=== PATIENT | female | born 1985 | race Caucasian/White ===

== ENCOUNTER 2019-09-27 09:25 | Outpatient (CLI) | payer OTHER ==
--- NOTE | 2019-09-27 10:18 | MMO ---
Bilateral MAMMO Bilat Diag [facility]. CLINICAL HISTORY: Patient is 34 years old and is seen for diagnostic exam. The patient has no family history of breast cancer. The patient has no personal history of cancer. VIEWS: The views performed were: bilateral craniocaudal with tomosynthesis; bilateral mediolateral oblique with tomosynthesis; and bilateral mediolateral with tomosynthesis. FILMS COMPARED: The present examination has been compared to a prior imaging study performed at [facility] on 09/27/2019. This study has been interpreted with the assistance of computer-aided detection. MAMMOGRAM FINDINGS: The breasts are heterogeneously dense, which could obscure a lesion on mammography. There is an equal density, oval mass measuring 17 millimeters with circumscribed margins seen in the anterior outer region of the left breast. This corresponds to the palpable area. The mass was shown to be a cyst on ultrasound. There are no suspicious masses, suspicious calcifications, or areas of architectural distortion. IMPRESSION: THERE IS NO MAMMOGRAPHIC EVIDENCE OF MALIGNANCY. A ROUTINE FOLLOW-UP MAMMOGRAM AT AGE 38 IS RECOMMENDED. THE RESULTS OF THIS EXAM WERE SENT TO THE PATIENT. ACR BI-RADS Category 2 - Benign finding MAMMOGRAPHY NOTE: 1. A negative mammogram report should not delay a biopsy if a dominant of clinically suspicious mass is present. 2. Approximately 10% to 15% of breast cancers are not detected by mammography. 3. Adenosis and dense breasts may obscure an underlying neoplasm. Reported by: JILLIAN BROWN MD Electonically Signed: [id number]
--- NOTE | 2019-09-27 10:56 | ULT ---
LIMITED LEFT BREAST ULTRASOUND: DATE: 09/27/2019. PROVIDED CLINICAL HISTORY: Left breast palpable abnormality. FINDINGS: Limited sonographic interrogation was performed of the left breast in the region of palpable concern. There is an oval, anechoic, wider than tall mass with enhanced through transmission measuring about 1.8 cm in the region of palpable concern. This is compatible with a simple cyst. No concerning son ographic features are evident. IMPRESSION: BIRADS category 2 - benign findings. Palpable finding corresponds to a simple cyst. POS: OFF
== END 2019-09-27 09:26 | disposition home or self-care (01) ==
LOC: BICMAMMO 09:25
PROVIDERS: ATTEND Obstetrics & Gynecology
DX: N60.02 Solitary cyst of left breast (principal)
CPT/HCPCS: 77066; G0279

== ENCOUNTER 2020-03-26 10:17 | Outpatient (CLI) | payer OTHER ==
--- NOTE | 2020-03-26 13:10 | MRI ---
MRI LEFT KNEE: DATE: 03/26/2020. PROVIDED CLINICAL HISTORY: Left knee pain status post injury. FINDINGS: Intact proximal fibers of the anterior cruciate ligament are not identified, compatible with proximal disruption. The posterior cruciate ligament, medial collateral ligament, lateral collateral ligamen tous complex, and extensor mechanism appear intact. Medial and lateral menisci demonstrate no evidence for tear. Probable meniscocapsular separation inv olving the posterior horn of the medial meniscus. Osteochondral impaction injury lateral femoral condyle. Contusion posteromedial and posterolateral t ibial plateaus with associated trabecular microfracture involving the posterior aspects of the medial tibial plateau. Articular cartilage appears otherwise normal. There is a moderate-large knee joint effusion. Small Jones's cyst. Myofascial tearing is noted invo lving the proximal soleus muscle. Regional muscular signal appears otherwise unremarkable. IMPRESSION: 1. Proximal anterior cruciate ligament disruption. 2. Medial meniscocapsular separation. 3. Osteochondral impaction injury lateral femoral condyle and contusions involving proximal tibia. Associated trabecular microfracture involving the posteromedial tibial plateau suspected. 4. Moderate-large knee joint effusion. POS: C
== END 2020-03-26 10:18 | disposition home or self-care (01) ==
LOC: TBSIIMAG 10:17
PROVIDERS: ATTEND Orthopaedic Surgery
DX: M23.92 Unspecified internal derangement of left knee (principal); S83.115A Anterior dislocation of proximal end of tibia, left knee, initial encounter; S83.242A Other tear of medial meniscus, current injury, left knee, initial encounter; M25.462 Effusion, left knee; S70.12XA Contusion of left thigh, initial encounter

== ENCOUNTER 2020-05-06 05:38 | Outpatient (CLI) | payer OTHER ==
[2020-05-06 12:16] LABS: BHCG - Serum Negative (NEGATIVE); Pregs Control Background? CLEAR/WHITE (CLR/WHITE); Pregs Control Bar Appear? YES (CONTROL BAR)
[2020-05-06 12:22] LABS: #Eosinphils 0.3 thou/uL (0.0-0.7); #Lymphocytes 2.1 thou/uL (1.20-3.40); #Monocytes 0.6 thou/uL (0.11-0.59); #Neutrophils 4.1 thou/uL (1.40-6.50); %Basophils 0.6 % (0.0-1.0); %Eosinophils 3.5 % (0.0-10.0); %Lymphocytes 29.5 % (21.0-51.0); %Monocytes 8.7 % (0.0-10.0); %Neutrophils 57.7 % (42.0-75.0); Hemoglobin 13.9 g/dL (12.0-16.0); Mean Corpuscular HGB CONC 32.6 g/dL (32.0-36.0); Mean Corpuscular Hemoglobin 30.4 pg (27.0-31.0); Mean Corpuscular Volume 93.3 fL (78.0-98.0); Mean Platelet Volume 8.5 fL (7.4-10.4); Platelet Count 275 thou/uL (130-400); RBC Distribution Width 11.9 % (11.5-14.5); Red Blood Cell (RBC) Count 4.58 mill/uL (4.20-5.40); White Blood Cell (WBC) Count 7.2 thou/uL (4.8-10.8)
[2020-05-07 13:09] LABS: SARS-CoV-2 MS2 Positive; SARS-CoV-2 N Gene Negative; SARS-CoV-2 S Gene Negative; SARS-CoV-2 orf1ab Negative
== END 2020-05-06 05:39 | disposition home or self-care (01) ==
LOC: LABBT 05:38
PROVIDERS: ATTEND Orthopaedic Surgery
DX: Z01.812 Encounter for preprocedural laboratory examination (principal); Z11.59 Encounter for screening for other viral diseases; S83.512A Sprain of anterior cruciate ligament of left knee, initial encounter
CPT/HCPCS: 84703; 85025; 87635; U0003

== ENCOUNTER 2020-05-08 05:53 | Observation (INO) | payer OTHER ==
[2020-05-03 10:31] VITALS: BMI 29.9
[2020-05-08] MEDS ORDERED: Midazolam HCl 2 mg/2 ml Vial ONE ×2 (06:31→06:42)
[2020-05-08] MEDS ORDERED: Fentanyl 100 MCG/2 ML VIAL ONE ×4 (06:31→10:42)
[2020-05-08] MEDS ORDERED: HYDROcodone/Acetaminophen 10/325 mg Tablet PO PRN ×2 (07:05)
[2020-05-08] MEDS ORDERED: Ondansetron PF 4 MG/2 ML Vial IVP PRN (07:05)
[2020-05-08] MEDS ORDERED: Zolpidem Tartrate 5 MG TAB PO PRN (07:05)
[2020-05-08] MEDS ORDERED: Ropivacaine 0.2% 550 ML 550 ML NERVE BLCK SCH (07:05)
[2020-05-08] MEDS ORDERED: Promethazine HCl 25 MG/ML VIAL IM PRN ×2 (07:05→09:23)
[2020-05-08] MEDS ORDERED: traMADol HCl 50 MG TAB PO PRN ×2 (07:05)
[2020-05-08] MEDS ORDERED: Fentanyl 100 MCG/2 ML VIAL SLOW IVP PRN (07:06)
[2020-05-08] MEDS ORDERED: Vancomycin 1.5 GRAM/300 ML BAG ONE (08:00)
[2020-05-08] MEDS ORDERED: diphenhydrAMINE 50 MG CAP PO PRN (08:52)
[2020-05-08] MEDS ORDERED: Milk Of Magnesia 30 ML UDCUP PO PRN (08:52)
[2020-05-08] MEDS ORDERED: Morphine 4 MG/ML VIAL SLOW IVP PRN (08:52)
[2020-05-08] MEDS ORDERED: Morphine 2 MG/ML SYRINGE SLOW IVP PRN (08:52)
[2020-05-08] MEDS ORDERED: HYDROcodone/Acetaminophen 7.5/325 mg Tablet PO PRN ×2 (08:52)
[2020-05-08] MEDS ORDERED: Methocarbamol 500 MG TAB PO PRN (08:52)
[2020-05-08] MEDS ORDERED: Bisacodyl 10 MG SUPP PR PRN (08:52)
[2020-05-08] MEDS ORDERED: Acetaminophen 500 MG TAB PO PRN (08:52)
[2020-05-08] MEDS ORDERED: Sodium Chloride 0.9% 1,000 ML IV SCH (09:00)
[2020-05-08] MEDS ORDERED: Ondansetron HCl/PF 4 MG/2 ML Vial IVP PRN (09:23)
[2020-05-08] MEDS ORDERED: Promethazine HCl 25 MG/ML VIAL SLOW IVP PRN (09:23)
[2020-05-08] MEDS ORDERED: Ketorolac Tromethamine 30 MG/ML VIAL IVP PRN (09:23)
[2020-05-08] MEDS ORDERED: Meperidine HCl/PF 25 MG/ML VIAL SLOW IVP PRN (09:23)
--- NOTE | 2020-05-08 10:07 | OP ---
DATE OF PROCEDURE: 05/08/2020 PREOPERATIVE DIAGNOSIS: Left knee anterior cruciate ligament tear. POSTOPERATIVE DIAGNOSIS: Left knee anterior cruciate ligament tear. PROCEDURES PERFORMED: 1. Left knee exam under anesthesia. 2. Left knee arthroscopy with arthroscopically-assisted anterior cruciate ligament reconstruction using an allograft, Achilles tendon. PHILANTHROPY OFFICER: Ajay Red PA-C ESTIMATED BLOOD LOSS: Minimal. COMPLICATIONS: None. She had a preoperative block. She also had general anesthetic. IMPLANTS: 7 x 25 metal interference screw on the femur, a 9 x 30 Bio[employer]posite screw in the tibial tunnel, and a bicortical screw with a soft tissue washer as backup on the tibia. DISPOSITION: She did go to recovery room in stable condition. INDICATIONS FOR PROCEDURE: This is a 35-year-old female, who tore her ACL and is exhibiting daily instability, at this time wished to have her ACL reconstructed with an allograft tendon. DESCRIPTION OF PROCEDURE: After all appropriate consent forms were explained and signed, she was taken to operative room and at this time was given general anesthetic. Once the level of anesthesia was appropriate, an exam under anesthesia confirmed a positive Isma's and a positive pivot shift. A tourniquet was placed on left thigh. Leg was placed in arthroscopic leg nix. The limb was then prepped and draped in standard surgical fashion. The limb was exsanguinated and tourniquet was taken to 300 mmHg. Inferolateral portal was established. Scope was placed into the knee joint. Needle localization technique was then used to make our medial working portal. Diagnostic arthroscopy was commenced in the notch. ACL was found to be torn. PCL was intact. Remnant of the ACL was removed with a shaver. Medial compartment was evaluated. Femur, tibia, and medial meniscus were probed thoroughly and found to be intact. On the lateral side, the same findings were noted as this was found to be completely intact. Gutters were clean. Patellofemoral joint was also clean. At this time, notchplasty was performed. We then flexed the knee, and through the medial portal, an [id number] guide was used to place a pin up and out the anterolateral thigh. A 10-mm reamer was used to ream the tunnel depth to nearly 30 mm. All loose bony and cartilaginous debris removed from the knee joint. Tibial guide set at 55 degrees was then set into the knee joint and a pin was placed into the anatomic insertion of the ACL on the tibia. 10-mm reamer was again used to ream our tunnel. Again, all loose bony and cartilaginous debris were removed from the knee joint. At this time, we dilated both the femoral and tibial tunnel to compact the bone in the tunnels. Red rasp and bur were then used to smooth off any rough edges of our tunnels. At this time, we then flexed the knee up and placed the pin up and out the anterolateral thigh one more time. This was used to pull the passing suture up into the knee joint, which was then pulled down the tibial tunnel. This was used for graft into place. 7 x 25 metal interference screw was then used to fix our femoral side. With the knee in full extension and posterior drawer being applied, a 9 x 30 BioComposite screw was then placed up the tibial tunnel. Camera was inserted into the knee to make sure that the graft had full range of motion with no impingement in full flexion or extension and no visible part of the screw was seen. Once this was done, we drilled, tapped and placed a bicortical screw with a soft tissue washer to back up our tibial fixation. At this time, we then cut the extra tissue off, closed our incisions with deep Vicryl followed by nylon sutures. Bulky sterile dressing was applied and tourniquet was let down. Toes pinked up nicely. The patient was awakened. She was taken to recovery room in stable condition. All counts were correct at the end of the case. She did receive preoperative IV antibiotics. Job ID: [id number]
[2020-05-08] MEDS ORDERED: Ketorolac Tromethamine 30 MG/ML VIAL ONE (11:28)
[2020-05-08] MEDS ORDERED: Dexamethasone 20 MG/5 ML VIAL ONE (11:33)
[2020-05-08] MEDS ORDERED: PROPOFOL 200 MG/20 ML VIAL ONE (11:33)
[2020-05-08] MEDS ORDERED: Lidocaine 1% PF 5 ML VIAL ONE (11:33)
[2020-05-08] MEDS ORDERED: Bupivacaine HCl 0.5%/Epinephrine 1:200,000/PF 30 ml Vial ONE (11:33)
[2020-05-08] MEDS ORDERED: Ondansetron PF 4 MG/2 ML Vial ONE (11:33)
[2020-05-08] MEDS ORDERED: CEFAZOLIN 2 GM in Premix Bag 1 BAG IVPB SCH (14:00)
[2020-05-08] MEDS: Ketorolac Tromethamine 30 MG/ML VIAL IVP SCH ×3 (14:05→23:21)
[2020-05-08] MEDS: Famotidine 40 MG/5 ML Oral Suspension PO SCH ×2 (14:05→20:33)
[2020-05-08] MEDS: CEFAZOLIN 2 GM in Premix Bag 1 BAG IVPB SCH ×2 (17:34→23:22)
[2020-05-08] MEDS: Vancomycin 1 GM in Premix Bag 1 BAG IVPB SCH (20:27)
[2020-05-09] MEDS: Ketorolac Tromethamine 30 MG/ML VIAL IVP SCH (05:38)
[2020-05-09 08:15] VITALS: BP 114/66; TEMP 98.3
[2020-05-09] MEDS ORDERED: Fentanyl 250 MCG/5 ML VIAL ONE (08:32)
[2020-05-09] MEDS: Famotidine 40 MG/5 ML Oral Suspension PO SCH (08:50)
[2020-05-09] MEDS: Vancomycin 1 GM in Premix Bag 1 BAG IVPB SCH (08:51)
[2020-05-09] MEDS ORDERED: Ondansetron PF 4 MG/2 ML Vial ONE (10:08)
== END 2020-05-09 12:05 | disposition home or self-care (01) ==
LOC: SDC 05:53 → SURG A 13:15
PROVIDERS: ADMIT Orthopaedic Surgery; ATTEND Orthopaedic Surgery
PROC: 0MRP47Z Replacement of Left Knee Bursa and Ligament with Autologous Tissue Substitute, Percutaneous Endoscopic Approach (ICD-10-PCS; principal; 2020-05-08)
PROC: 3E0T3BZ Introduction of Anesthetic Agent into Peripheral Nerves and Plexi, Percutaneous Approach (ICD-10-PCS; 2020-05-08)
DX: S83.512A Sprain of anterior cruciate ligament of left knee, initial encounter (principal); G89.18 Other acute postprocedural pain; X58.XXXA Exposure to other specified factors, initial encounter
CPT/HCPCS: 96374; 96375; 96376; A4306; C1713; G0378; J0670; J0690; J1100; J1885; J2001; J2250; J2405; J2704; J2795; J3010; J3370

== ENCOUNTER 2023-03-12 09:18 | Outpatient (CLI) | payer BC | END 2023-03-12 09:19 | disposition home or self-care (01) | LOC: BICMAMMO 09:18 | PROVIDERS: ATTEND Obstetrics & Gynecology | DX: N63.11 Unspecified lump in the right breast, upper outer quadrant (principal); R92.8 Other abnormal and inconclusive findings on diagnostic imaging of breast | CPT/HCPCS: G0279 ==

== ENCOUNTER 2024-03-29 11:30 | Outpatient (CLI) | payer BC | END 2024-03-29 11:31 | disposition home or self-care (01) | LOC: BICMAMMO 11:30 | PROVIDERS: ATTEND Obstetrics & Gynecology | DX: Z12.31 Encounter for screening mammogram for malignant neoplasm of breast (principal) | CPT/HCPCS: 77063; 77067 ==